=== PATIENT | female | born 1960 | race Caucasian/White ===

== ENCOUNTER 2021-12-08 18:43 | Outpatient (CLI) | payer OTHER ==
--- NOTE | 2021-12-09 10:22 | Ultrasound Report ---
PROCEDURE: Pelvic w/Transvaginal INDICATIONS: DYSFUNCTIONAL UTERINE BLEEDING TECHNIQUE: Real-time scanning was performed of the pelvic organs, with image documentation. Additional endovagi nal scanning was necessary due to incomplete visualization of the adnexal and endometrial structures by transabdominal scanning. COMPARISON: None. FINDINGS: Uterus: Uterus is anteverted and normal in size at 8.7 x 4.3 x 5.6 cm. The myometrium is homogeneou s. The endometrium measures 18 mm in combined thickness. Small cystic spaces are seen within the en dometrium. Ovaries: The right ovary measures 2.7 x 1.7 x 1.7 cm, with a calculated ovarian volume of 3.9 cc. T he left ovary measures 2.1 x 1.1 x 1.9 cm, with a calculated ovarian volume of 2.4 cc. The ovaries h ave a normal sonographic appearance. Less than 12 follicles can be seen in each ovary. No adnexal m asses are seen. Other: No pathologic free abdominal or pelvic fluid. IMPRESSION: Abnormal thickening of the endometrial echocomplex measuring up to 18 mm in thickness, w hich may be secondary to an endometrial polyp versus endometrial hyperplasia or malignancy. Recommend gynecology consultation and possible endometrial biopsy. Reviewed by: Yousif Mcbride MD on 12/09/2021 10:21 AM PDT Approved by: Yousif Mcbride MD on 12/09/2021 10:21 AM PDT Station ID: [id number]
== END 2021-12-08 18:44 | disposition home or self-care (01) ==
LOC: DI 18:43
PROVIDERS: ATTEND Nurse Practitioner
DX: R93.89 Abnormal findings on diagnostic imaging of other specified body structures (principal); N93.8 Other specified abnormal uterine and vaginal bleeding